=== PATIENT | female | born 1945 | race Hispanic/Latino ===

== ENCOUNTER 2018-04-17 14:19 | Outpatient (CLI) | payer MEDICARE ==
--- NOTE | 2018-04-17 15:22 | XRay Report ---
RIGHT KNEE: Pain. The bony architecture is intact without evidence of fracture or dislocation. No significant soft tissue abnormality is seen. IMPRESSION: Normal right knee.
== END 2018-04-17 14:20 | disposition home or self-care (01) ==
LOC: SPVIMAG 14:19
PROVIDERS: ATTEND Internal Medicine
DX: M17.11 Unilateral primary osteoarthritis, right knee (principal)